=== PATIENT | female | born 1955 | race Caucasian/White ===

== ENCOUNTER 2021-01-08 11:00 | Emergency (ER) | payer MEDICARE, OTHER ==
[~2021-01-08] VITALS: Ht 165.1 cm; Wt 118.8 kg
[2021-01-08] MEDS ORDERED: ROBAXIN750 MG PO (13:48)
[2021-01-08] MEDS ORDERED: PREDNISONE 20MG20 MG PO (13:48)
[2021-01-08] MEDS ORDERED: IBUPROFEN800 MG PO (13:49)
== END 2021-01-08 14:07 | disposition home or self-care (01) ==
LOC: FER 11:00
DX: G89.29 Other chronic pain (principal); M54.41 Lumbago with sciatica, right side; I10 Essential (primary) hypertension; Z90.49 Acquired absence of other specified parts of digestive tract; Z88.3 Allergy status to other anti-infective agents; Z88.6 Allergy status to analgesic agent
CPT/HCPCS: 99283; J1885

== ENCOUNTER 2021-01-16 16:30 | Emergency (ER) | payer MEDICARE, OTHER ==
[~2021-01-16 16:30] MED LIST: IBUPROFEN800 MG PO; PREDNISONE 20MG20 MG PO; ROBAXIN750 MG PO
[2021-01-16 20:38] LABS: BILIRUBIN NEGATIVE (NEGATIVE); BLOOD NEGATIVE Ery/uL (NEGATIVE); CLARITY CLEAR (CLEAR); COLOR YELLOW (YELLOW); GLUCOSE (U) NORMAL (NORMAL); LEUKOCYTES TRACE Leu/uL (NEGATIVE); NITRITE NEGATIVE (NEGATIVE); PROTEIN 1+ mg/dL (NEGATIVE); SPECIFIC GRAVITY 1.025 (1.001-1.030); UROBILINOGEN 0.2 mg/dL (0.2-1.0); pH 6.5 (5.0-9.0)
[2021-01-16 20:46] LABS: BACTERIA TRACE
[2021-01-16] MEDS ORDERED: CEPHALEXIN500 MG PO (21:28)
[2021-01-16] MEDS ORDERED: MEDROL 4MG DOSEP4 MG PO (21:28)
== END 2021-01-16 22:40 | disposition home or self-care (01) ==
LOC: FER 16:30
PROVIDERS: Nurse Practitioner Family
DX: M54.41 Lumbago with sciatica, right side (principal); N39.0 Urinary tract infection, site not specified; I10 Essential (primary) hypertension
CPT/HCPCS: 81001; 87088; 96372; 99283; J1100; J1885